=== PATIENT | female | born 1945 | race African-American/Black ===

== ENCOUNTER 2020-10-16 06:28 | Inpatient (IN) | payer OTHER ==
[~2020-10-16] VITALS: Ht 165.1 cm; Wt 67.6 kg
--- NOTE | ~2020-10-16 | EMS ---
[facility] [address] [place] [address] EMS Patient Care Report Name: PALMA SANTAMARIA Room #: REG ANIYAH Dobson#: [id number] Admission: 10/16/20 Attend Phys: Discharge: Date of : 49 Report #: [id number] THIS REPORT FOR: //name// Report Transmitted: 10/16/2020 07:50 EMS Care Summary [place], [place]/[facility] Incident [id number] @ 10/16/2020 05:50 Incident Location [id number] [place] [address] Patient PALMA SANTAMARIA Female, 75 Years 1945 Patient Address [id number] [place] [address] Patient History Asthma,Congestive Heart Failure (CHF),Hypertension (HTN), Patient Allergies Penicillin allergy,Sulfa, Patient Medications Other, Chief Complaint CHEST PAIN WORSE WITH MOVEMENT Disposition Transported No Lights/[place] Dispatch Reason Chest Pain (Non-Traumatic) Transported To [facility] Narrative UPON ARRIVAL PT MEETS US AT DOOR, PT CONSCIOUS ALERT IN WHEELCHAIR. PT C/O LEFT SIDED CHEST PAIN THAT BEGAN LAST NIGHT. PAIN WORSE WITH MOVEMENT. PAIN SIGNIFICICANTLY WORSE WHEN WE HIT BUMPS WHILE DRIVING. PT ALSO STARTED HAVING [facility] [address] [place] [address] EMS Patient Care Report Name: PALMA SANTAMARIA Room #: REG [place]#: [id number] Admission: 10/16/20 Attend Phys: Discharge: Date of : 49 Report #: [id number] SOB LAST NIGHT. PT ALSO HAVING INCREASE IN LEG EDEMA FOR WEEKS. PT STATES THIS ALL HAPPPENS WHEN HER CHF FLAIRS UP. PT REFUSES ANY FURTHER IV ATTEMPTS AFTER MISS. PT REQUESTS TRANSPORT TO [facility] ER AND IS TRANSPORTED TO [facility]. Initial Vitals @06:10P: 80,CO: 2,SpO2: 100,DE Suspected: false @06:19P: 80,R: 20,BP: 170/102,GCS: 15,SpO2: 98,Revised Trauma: 12, @06:02P: 89,R: 20,BP: 189/95,Pain: 8/10,GCS: 15,SpO2: 99,Revised Trauma: 12, Assessments @05:59MENTAL:Person Oriented,Time Oriented,Event Oriented,Place Oriented,SKIN:HEENT:Head/Face: No Abnormalities,Neck/Airway: No Abnormalities,LUNG SOUNDS:General: No Abnormalities,ABDOMEN:General: No Abnormalities,PELVIS//GI:EXTREMITIES:Left Leg: Edema,Right Leg: Edema,Left Arm: No Abnormalities,Right Arm: No Abnormalities,PULSE:Radial: 2+ Normal,NEURO:No Abnormalities, Impression Chest Pain / Discomfort Procedures @05:59ALS AssessmentResponse: UnchangedSucceeded@06:1012-Lead ECGResponse: UnchangedSucceeded@06:083-Lead ECGResponse: UnchangedSucceeded@06:08Saline Lock 0cc (20 ga) Site: Antecubital-LeftResponse: UnchangedFailed Timeline 05:49,Call Received 05:49,Dispatch Notified 05:50,Dispatched 05:53,En Route 05:56,On Scene 05:58,At Patient 05:59,ALS Assessment,Response: UnchangedSucceeded, 06:02,BP: 189/95 M,PULSE: 89,RR: 20 R,SPO2: 99 Ox,ETCO2: ,BG: ,PAIN: 8,GCS: 15, 06:08,Saline Lock 0cc 20 ga Site: Antecubital-Left,Response: UnchangedFailed, 06:08,3-Lead ECG,Response: UnchangedSucceeded, 06:10,12-Lead ECG,Response: UnchangedSucceeded, 06:10,BP: / M,PULSE: 80,RR: R,SPO2: 100 Ox,ETCO2: ,BG: ,PAIN: ,GCS: , 06:12,Depart Scene 06:19,BP: 170/102 M,PULSE: 80,RR: 20 R,SPO2: 98 Ox,ETCO2: ,BG: ,PAIN: ,GCS: 15, 06:23,At Destination 06:47,Call Closed Disclaimer v1.1 Copyright 2020 [employer] This EMS Care Summary contains data elements from the applicable legal record [facility] [address] [place] [address] EMS Patient Care Report Name: PALMA ASNTAMARIA Room #: REG Luis F.#: [id number] Admission: 10/16/20 Attend Phys: Discharge: Date of : 49 Report #: [id number] (which may be displayed differently). It is designed to provide pertinent information for the following purposes: continuity of care, clinical quality, and state data reporting. The complete legal record is available to ED staff and administrators of the receiving hospital in [facility]'s Patient Tracker. All data is provided "as is."
[2020-10-16 06:30] VITALS: BP 179/105
[2020-10-16 07:19] LABS: URINE BILIRUBIN NEGATIVE (Negative); URINE BLOOD NEGATIVE (Negative); URINE CLARITY CLEAR; URINE COLOR YELLOW; URINE GLUCOSE-RANDOM* NEGATIVE (Negative); URINE KETONES NEGATIVE (Negative); URINE LEUKOCYTES-REFLEX TRACE (Negative); URINE NITRITE-REFLEX NEGATIVE (Negative); URINE PROTEIN (DIPSTICK) NEGATIVE (Negative); URINE UROBILINOGEN 0.2 E.U./dl (0.2-1.0)
[2020-10-16 07:23] LABS: ABSOLUTE NEUTROPHILS 1.7 thou/uL (1.4-8.2); BASOPHILS 1.7 % (0.0-2.0); EOSINOPHILS 18.2 % (0.0-3.0); HEMATOCRIT 29.5 % (37.0-47.0); LYMPHOCYTES 30.5 % (24.0-44.0); MCH 36.9 pg (26.0-34.0); MCHC 33.8 g/dL (28.0-37.0); MCV 109.3 fL (80.0-100.0); MONOCYTES 12.3 % (1.0-8.0); PLATELET COUNT 122 thou/uL (150-400); POLYS 37.3 % (36.0-66.0); RDW 14.5 % (10.5-14.5); WBC 4.6 thou/uL (4.0-11.0)
[2020-10-16 07:27] LABS: ANION GAP 11 mmol/L (7-16); BUN 8 mg/dL (7-18); CALCIUM 8.8 mg/dL (8.5-10.1); CHLORIDE 107 mmol/L (98-107); CO2 24 mmol/L (21-32); CREATININE 1.2 mg/dL (0.6-1.0); GLUCOSE 77 mg/dL (74-106); POTASSIUM 3.7 mmol/L (3.5-5.1); SODIUM 142 mmol/L (136-145)
[2020-10-16 07:40] LABS: ALBUMIN 2.8 g/dL (3.4-5.0); SGOT 16 U/L (15-37); SGPT 14 U/L (14-59); TOTAL BILIRUBIN 0.6 mg/dL (0.2-1.0); TOTAL PROTEIN 7.5 g/dL (6.4-8.2); TROPONIN-I <0.06 ng/mL (<0.06)
--- NOTE | 2020-10-16 08:10 | NUR ---
ATTEMPTED TO PHONE [facility] AND AFTER 7 MIN HOLD WILL CALL AGAIN.[phone]
--- NOTE | 2020-10-16 09:36 | NUR ---
PT DID TRANSFER W STAND BY ASSIST ONLY TO SIT IN CHAIR WHILE BED STRIPPED AND PT CHANGED. GAIT STEADY. PT REFUSES TO WALK STATES SHE IS UNABLE.
[2020-10-16] MEDS ORDERED: ZESTRIL40 MG PO (10:01)
[2020-10-16] MEDS ORDERED: LINZESS145 MCG PO (10:02)
[2020-10-16] MEDS ORDERED: PERCOCET 10-321 EAC1 PO (10:02)
[2020-10-16] MEDS ORDERED: PROAIR HFA8.5 GM INH (10:03)
[2020-10-16] MEDS ORDERED: LIPITOR40 MG PO (10:03)
[2020-10-16] MEDS ORDERED: ONDANSETRON HCL4 M2 PO (10:03)
[2020-10-16] MEDS ORDERED: TOVIAZ4 M1 PO (10:04)
[2020-10-16] MEDS ORDERED: MYRBETRIQ25 MG PO (10:04)
[2020-10-16] MEDS ORDERED: TOPROL XL25 MG PO (10:04)
[2020-10-16 10:19] LABS: MACROCYTES 1+; PLATELET ESTIMATE NORMAL
--- NOTE | 2020-10-16 10:32 | NUR ---
CALL TO [facility] [phone] REQUESTING THERAPEUTIC RECREATION LEADER ANNA. SHE CONFIRMS PT WAS INPT OBS ON 09/20/20 FOR CHF AND WAS TO FOLLOW UP W DR GLEASON FOR CARDIAC STRESS TEST 09/22/20. PT HAS HX OF CHF, CVA, HTN, ASTHMA, COPD SHE IS TO SEND RECORDS REFAXED RELEASE OF INFORMATION.
[2020-10-16 11:13] VITALS: BP 127/87
--- NOTE | 2020-10-16 11:37 | NUR ---
FOZIA FERRER TAKING REPORT STATED SHE WOULD CALL BACK IN 10 MIN DUE TO HER BEING IN A PROCEEDURE.
[2020-10-16 12:00] VITALS: BP 171/83
[2020-10-16 13:08] LABS: % SATURATION 85 % (20-39); IRON 175 ug/dL (50-170); TIBC 206 ug/dL (250-450)
[2020-10-16 15:59] VITALS: BP 150/83
--- NOTE | 2020-10-16 16:00 | 2DMMODE ---
[facility] [place] [address] 2 D/M-MODE ECHOCARDIOGRAM Name: PALMA SANTAMARIA Room #: 360-P ADM IN M.R.#: [id number] Admission: 10/16/20 Attend Phys: Esteban Ambrose MD Discharge: Date of : 49 Report #: [id number] THIS REPORT FOR: cc: FAM - Family physician unknown FAM - Family physician unknown Benny Pablo MD [facility] ~ APPROVED REPORT Study performed: 10/16/2020 13:50:11 EXAM: Comprehensive 2D, Doppler, and color-flow Echocardiogram Patient Location: Bedside Room #: 360 Status: routine BSA: 1.75 HR: 84 bpm BP: 171/83 mmHg Rhythm: NSR Other Information Study Quality: Good Indications Diabetes Dyspnea Hypertension/HDD 2D Dimensions RVDd: 34.28 mm IVSd: 8.22 (7-11mm) LVOT Diam: 22.07 (18-24mm) LVDd: 52.13 mm PWd: 7.72 (7-11mm) Ascending Ao: 29.81 (22-36mm) LVDs: 35.43 (25-40mm) Left Atrium: 44.62 (27-40mm) Aortic Root: 30.31 mm IVC: 22.00 mm Volumes Left Atrial Volume (Systole) Single Plane 4CH: 60.59 mL Single Plane 2CH: 71.14 mL LA ESV Index: 42.00 mL/m2 Aortic Valve AoV Peak Aashish.: 1.35 m/s AO Peak Gr.: 7.24 mmHg LVOT Max P.58 mmHg [facility] [address] [address] 2 D/M-MODE ECHOCARDIOGRAM Name: TESS SANTAMARIAYCE Room #: 360-P [facility] IN [facility]#: [id number] Admission: 10/16/20 Attend Phys: Esteban Ambrose MD Discharge: Date of : 49 Report #: [id number] LVOT Max V: 1.07 m/s TONIA Vmax: 3.04 cm2 Mitral Valve E/A Ratio: 0.9 MV Decel. Time: 183.72 ms MV E Max Aashish.: 0.97 m/s MV A Aashish.: 1.07 m/s MV PHT: 53.28 ms IVRT: 147.64 ms Pulmonary Valve PV Peak Aashish.: 0.99 m/s PV Peak Gr.: 3.89 mmHg Pulmonary Vein P Vein S: 0.47 m/s P Vein A: 0.43 m/s P Vein D: 0.36 m/s P Vein A Dur.: 143.0 msec P Vein S/D Ratio: 1.31 Tricuspid Valve TR Peak Aashish.: 3.92 m/s TR Peak Gr.: 61.38 mmHg PA Pressure: 76.00 mmHg Left Ventricle The left ventricle is normal size. There is normal LV segmental wall motion. There is normal left ventricular wall thickness. The left ventricular systolic function is normal. The left ventricular ejection fraction is within the normal range. LVEF 55%. Mild diastolic dysfunction Right Ventricle The right ventricle is normal size. The right ventricular systolic function is normal. Atria Left atrium is dilated. Right atrium is at the upper limits of normal. Aortic Valve The aortic valve is normal in structure. No aortic regurgitation is present. There is no aortic valvular stenosis. Mitral Valve The mitral valve is normal in structure. Mild mitral regurgitation. No evidence of mitral valve stenosis. [facility] [address] [place] [address] 2 D/M-MODE ECHOCARDIOGRAM Name: PALMA SANTAMARIA Room #: 360-P [facility] IN ..#: [id number] Admission: 10/16/20 Attend Phys: Esteban Ambrose MD Discharge: Date of : 49 Report #: [id number] Tricuspid Valve The tricuspid valve is normal in structure. There is mild tricuspid regurgitation. Estimated PAP 75 mmHg. There is severe pulmonary hypertension. Pulmonic Valve The pulmonary valve is normal in structure. There is no pulmonic valvular regurgitation. Great Vessels The aortic root is normal in size. IVC is normal in size and collapses >50% with inspiration. IVC is normal in size and collapses >50% with inspiration. Pericardium Anterior clear space, likely epicardial fat. <Conclusion> The left ventricular systolic function is normal. There is normal LV segmental wall motion. LVEF 55%. Mild diastolic dysfunction Left atrium is dilated. The aortic valve is normal in structure. No aortic regurgitation or stenosis The mitral valve is normal in structure. Mild mitral regurgitation. There is mild tricuspid regurgitation. Estimated pulmonary artery of 75 mmHg. Anterior clear space, likely epicardial fat. <ELECTRONICALLY SIGNED> By: Benny Pablo MD, FACC 10/16/201599 99 99 Benny Pablo MD, FACC /INF
[2020-10-16 19:54] VITALS: BP 124/69
[2020-10-17 03:04] VITALS: BP 142/82
[2020-10-17 04:40] LABS: HEMATOCRIT 29.6 % (37.0-47.0); MCH 37.2 pg (26.0-34.0); MCHC 33.8 g/dL (28.0-37.0); MCV 110.2 fL (80.0-100.0); RBC 2.69 mil/uL (4.20-5.00); RDW 14.3 % (10.5-14.5); WBC 3.8 thou/uL (4.0-11.0)
[2020-10-17 04:46] LABS: CALCIUM 8.5 mg/dL (8.5-10.1); CREATININE 1.3 mg/dL (0.6-1.0); MAGNESIUM 1.1 mg/dL (1.8-2.4); POTASSIUM 3.7 mmol/L (3.5-5.1)
[2020-10-17 07:37] VITALS: BP 148/92
--- NOTE | 2020-10-17 08:00 | NUR ---
Received pt. on 1 L/NC with O2 sat of 100%. RT titrated to RA and did nocturnal desat study last night. Pt. stated she slept fair during the night. Requested med for pain , tylenol given with no relief. Hydrocodone given with better outcome. Up with SBA to commode. Bed alarm on for safety. Denies chest pain though she verbalized being short of breath with exertion.
[2020-10-17 11:13] VITALS: BP 122/74
[2020-10-17 11:35] VITALS: BP 122/74
--- NOTE | 2020-10-17 14:39 | EKG ---
[address] [place] [address] ELECTROCARDIOGRAM REPORT Name: PALMA SANTAMARIA Room #: 360- ADM IN M.R.#: [id number] Admission: 10/16/20 Attend Phys: Esteban Ambrose MD Discharge: Date of : 49 Report #: [id number] [facility] ED Test Date: 2020-10-16 Test Time: 06:34:53 Pat Name: PALMA SANTAMARIA Department: Room: 360 Gender: F It Architecture Analyst: unknown : 1945 Requested By: Carmen Cheung Order Number: [id number] MD: Jaime Myers Measurements Intervals [place] Rate: 87 P: 22 CT: 132 QRS: 39 QRSD: 100 T: 110 QT: 352 QTc: 424 Interpretive Statements Sinus rhythm Ventricular premature complex Abnrm T, consider ischemia, anterolateral lds No previous ECG available for comparison Electronically Signed On 10-17-2020 14:39:35 CDT by Jaime Myers [email or web address] <ELECTRONICALLY SIGNED> By: Jaime Myers MD, [facility] 10/17/20 1439 0634 3 Jaime Myers MD, FACC /EPI
--- NOTE | 2020-10-17 14:53 | NUR ---
INITIAL ASSESSMENT: Received consult. AVE reviewed chart and spoke with nursing and attending physician. Pt was admitted due to chest pain/dyspnea. Pt is currently on 3L of O2. PT/OT ordered to evaluate pt for discharge needs. AVE met with pt at bedside. Introduced role of AVE. Pt is alert/orientated x 4 and reports she has been staying at an Extended Stay motel. Pt states she was recently hospitalized at [facility]. Pt was on service with [facility] . Discussed case with liaison, who states they are unable to accept pt back on service. Pt reports she has a w/c and has home O2 in place through [facility]. Pt's PCP is at [facility]. Pt states her provider is going to be graduating soon and unsure who her next PCP will be. SW discussed SNF placement upon discharge. Pt is agreeable. SW provided list of in-network facilities for pt to review. Pt reports that she is unsure of her jail plans at this time. Pt does not know if she will have the financial means to pay for additional time at an Extended Stay motel. AVE asked about family/social support. Pt has a sister, who she is in contact with. SW offered to contact pt's sister to provide update. Pt declines offer and states she will be the only one to contact her sister. AVE is following to assist as needed with discharge planning.
[2020-10-17 15:41] VITALS: BP 120/74
[2020-10-17 19:58] VITALS: BP 120/65
--- NOTE | 2020-10-17 20:04 | NUR ---
RN ASSUMED PT, FATEMEHE AT 0700AM, PT IS A&OX3, PT IS ON O2 2-3L/MIN/NC, PT'S VS AND O2SAT ARE STABLE, PT HAS LOW MAG REPLACEMENT , PT 'S PAIN CAN CONTROL , PT DENIES SOB AND N/V AT DAY SHIFT.
[2020-10-18 04:47] VITALS: BP 159/81
[2020-10-18 04:48] LABS: HEMATOCRIT 30.6 % (37.0-47.0); HEMOGLOBIN 10.2 gm/dL (12.0-15.0); MCH 37.1 pg (26.0-34.0); MCHC 33.4 g/dL (28.0-37.0); PLATELET COUNT 125 thou/uL (150-400); RBC 2.76 mil/uL (4.20-5.00); RDW 14.3 % (10.5-14.5); WBC 3.3 thou/uL (4.0-11.0)
[2020-10-18 04:49] VITALS: BP 159/81
[2020-10-18 05:24] LABS: CALCIUM 8.8 mg/dL (8.5-10.1); CREATININE 1.5 mg/dL (0.6-1.0); MAGNESIUM 2.1 mg/dL (1.8-2.4); POTASSIUM 4.2 mmol/L (3.5-5.1)
[2020-10-18 07:57] VITALS: BP 156/82
--- NOTE | 2020-10-18 07:59 | NUR ---
PROGRESS PT A/O X4 UP AD HARJIT REPORTING PAIN TO HEAD AND LEFT SIDE OF BODY TAKING HYDROCODONE WITH SOME EFFECT PT RESTED AFTER. DENIES CHEST PAIN BUT IS C/O PAIN IN LEFT LEG NEAR IP AND DOWN LEG AND THEN PAIN TO RIGHT ANKLE. PT VERY CONCERNED ABOUT VT'S BUT DISCUSSED ELIQUIS MEDICATION THAT WOULD DISSOLVE THEM SHE R/V UNDERSTANDING. CONTINUE POC.
[2020-10-18 11:31] VITALS: BP 138/71
[2020-10-18 12:31] LABS: ANISOCYTOSIS SLIGHT; LARGE PLATELETS OCCASIONAL; MACROCYTES 2+
[2020-10-18 15:56] VITALS: BP 140/66
--- NOTE | 2020-10-18 17:02 | NUR ---
PATIENT HAS DECLINED MULTIPLE TREATMENTS THIS SHIFT SUCH : PT, OT, AND BATHING. PATIENT WILL OFTEN PUT A BLANKET OVER HER HEAD AND NOT ANSWER STAFF. EDUCATION PROVIDED ABOUT TREATMENTS BUT PATIENT CONTINUES TO DECLINE.
--- NOTE | 2020-10-18 17:13 | NUR ---
cm faxed referrals to [facility] op [phone], [facility] [phone] and [facility]. [phone].
[2020-10-18 19:50] VITALS: BP 149/85
[2020-10-19 04:05] VITALS: BP 158/92
--- NOTE | 2020-10-19 04:58 | NUR ---
Patient has progressed towards outcome goals. Vital signs and rhythm stable. High fall risks, fall precautions in place. Uses call light appropriately for needs. Slept after Hydrocodone.
[2020-10-19 07:43] VITALS: BP 159/82
[2020-10-19 08:07] LABS: ANA INTERPRETATION Negative (Negative)
[2020-10-19 11:30] VITALS: BP 155/91
--- NOTE | 2020-10-19 13:48 | NUR ---
PATIENT ALERT/ORIENTED. VOICES PAIN TO ANKLE AND HEAD. PRN MEDICATIONS GIVEN PER EMAR. WORKING WITH PT/OT. UP WITH MINIMAL ASSIST. MEDICALLY READY FOR DISCHARGE PER DR. PERLA. AWAITING FACILITY PLACEMENT FROM CASE MANAGEMENT. PATIENT VERABLIZES NEEDS. ALL FALL PRECAUTIONS IN PLACE.
--- NOTE | 2020-10-19 14:54 | NUR ---
SW reviewed chart and spoke with nursing and attending physician. Pt is progressing towards goals for discharge to SNF. AVE received call from Manasa at [facility], stating that pt will have a copay on day 21 of skilled services due to having [place]icaid as secondary insurance. [facility] liaison states they are unable to accept pt due to having [facility] Dual Complete/[place] Medicaid. AVE met with pt at bedside to provide update and discuss alternate SNF options. Reviewed list of in-network [place] SNFs with pt. Pt requests referrals to be sent to [facility]. SW faxed referrals and notified liaisons of new referral. Will need insurance auth once pt has chosen a facility. AVE is following to assist as needed with discharge planning.
[2020-10-19 16:38] VITALS: BP 161/98
[2020-10-19 21:00] VITALS: BP 174/92
--- NOTE | 2020-10-20 03:57 | NUR ---
Patient is progressing towards outcome goals. Oxygenation optimal on room air but she wants nasal cannula on. Nocturnal desat study in progress. Complained of urinary urgency. Orders received for UA, collected and sent. Results pending. High fall risks, fall precautions in place. Calls out approipriately for needs, gait steady, standby assist.
[2020-10-20 04:40] VITALS: BP 171/92
[2020-10-20 04:55] LABS: URINE BILIRUBIN NEGATIVE (Negative); URINE BLOOD NEGATIVE (Negative); URINE CLARITY CLEAR; URINE COLOR YELLOW; URINE GLUCOSE-RANDOM* NEGATIVE (Negative); URINE KETONES NEGATIVE (Negative); URINE LEUKOCYTES NEGATIVE (Negative); URINE NITRITE NEGATIVE (Negative); URINE PROTEIN (DIPSTICK) NEGATIVE (Negative); URINE SPECIFIC GRAVITY 1.015 (1.005-1.035)
[2020-10-20 07:29] VITALS: BP 181/96
--- NOTE | 2020-10-20 11:06 | NUR ---
SW reviewed chart and spoke with nursing and attending physician. Pt is medically stable for discharge to post-acute care. Pt has been accepted by [facility]. SW met with pt at bedside to provide update and notify of acceptance. Pt states that she would like to interview both facilities to determine which one she prefers. SW explained process for obtaining insurance authorization. Pt verbalized understanding. Daniel from [facility] will do onsite visit. Candida from [facility] will speak with pt via phone. Awaiting preference from pt at this time. SW is following to assist as needed with discharge planning.
[2020-10-20 15:23] VITALS: BP 157/83
[2020-10-20 20:53] VITALS: BP 182/100
[2020-10-20 23:59] VITALS: BP 188/106
[2020-10-21] VITALS: BP 169/84
--- NOTE | 2020-10-21 05:33 | NUR ---
PROGRESS PT A/O X4. REPORTS HEADACHE ON LEFT SIDE OF HEAD AND PAIN IN BOTH LEGS RATING AN 8 OUT OF 0/10 SCALE HYDROCODONE GIVEN WITH SOME EFFECT PT DID SLEEP AFTER FOR AWHILE. BP ELEVATED 182/100 AT START OF SHIFT THEN 169/73 ON RECHECK. NOCTURNAL OXIMETRY STUDY IN PROGRESS SATS REMAINING IN HIGH 90'S ON ROOM AIR, PT DENIES SOB. UP AD HARJIT TO BSC, AND SBA WITH ANY DISTANCE ACTIVITY. GAIT STEADY. LUNGS CLEAR PT HAS SOME TRACHEAL CONGESTION SHE IS HAVING TROUBLE CLEARING MUCINEX ORDER OBTAINED AND GIVEN PT STATES STILL UNABLE TO CLEAR THROAT. ADVISED TO PUSH FLUIDS AND TRY TO LOOSEN MUCUS. PT AWAITING TRANSFER TO [facility]ISTED LIVING.
[2020-10-21 05:40] VITALS: BP 155/87
[2020-10-21 07:19] VITALS: BP 170/98
[2020-10-21 15:32] VITALS: BP 149/87
[2020-10-21 20:00] VITALS: BP 167/90
[2020-10-22 05:04] VITALS: BP 176/99
--- NOTE | 2020-10-22 07:20 | NUR ---
PROGRESS PT A/O X4 LUNGS CLEAR BUT DIMINISHED, TRACHEAL CONGESTION NOTED PT FEELS LIKE SHE IS UNABLE TO CLEAR, MUCINEX GIVEN AND ENCOURAGED PT TO DRINK FLUIDS TO THIN SECRETIONS. VSS VOIDING QS. TAKING HYDROCODONE WITH EFFECT FOR HEADACHE AND BILATERAL LEG PAIN. RIGHT LEG WRAPPED WITH WARM BLANKET WITH GOOD EFFECT PT STATED IT HELPED A LOT. CONTINUE POC.
[2020-10-22 15:34] VITALS: BP 111/64
[2020-10-22 15:37] VITALS: BP 152/80
[2020-10-22 19:09] VITALS: BP 172/87
[2020-10-22 21:52] VITALS: BP 137/82
[2020-10-23 04:20] VITALS: BP 169/75
--- NOTE | 2020-10-23 05:20 | NUR ---
PT MAKING PROGRESS TOWARDS GOALS. NO REPORTS OF CHEST PAIN. PAIN COMPLAINTS ARE HEADACHE AND GENERALIZED BODY PAIN. TREATED WITH LORTABL PER ORDERS AND PTS REPORTED PAIN LEVEL. SEE CHARTING.
[2020-10-23 07:15] VITALS: BP 169/83
--- NOTE | 2020-10-23 07:19 | NUR ---
REPORT GIVEN TO CARISSA MARCELO. PT MAKING POOR PROGRESS TOWARDS GOALS. LUNGS COARSE THROUGHOUT. HAS WET BUT NONPRODUCTIVE COUGH. CONGESTION CAN BE HEARD W/O STETHOSCOPE. PT COUGH ALSO WEAK. SLIGHTLY STRONGER WITH DEEP BREATH PRIOR TO FORCING COUGH. ASKED DAY RT TO PROVIDE FLUTTER VALVE. ENCOURAGED DEEP BREATH/COUGH EVERY HOUR. WOB EASILY ELEVATED WITH MOVEMENT.
[2020-10-23 15:17] VITALS: BP 176/102
[2020-10-23 16:33] VITALS: BP 147/69
[2020-10-23 20:36] VITALS: BP 136/72
[2020-10-24 03:23] VITALS: BP 146/63
--- NOTE | 2020-10-24 03:57 | NUR ---
PT MAKING PROGRESS TOWARDS GOALS. X1 DOSE OF LORTAB GIVEN FOR GENERALIZED BODY PAIN AND HEADACHE OVERNIGHT. RATING PAIN 8/10 WITH A DECREASE TO 5/10 AFTER PAIN MEDICATION. CONTINUE TO MONITOR.
[2020-10-24 07:33] VITALS: BP 146/80
[2020-10-24] MEDS ORDERED: HYDROCODON-ACE1 EAC7 PO (11:02)
[2020-10-24] MEDS ORDERED: HYDRALAZINE 10M10 MG PO (11:02)
[2020-10-24] MEDS ORDERED: ELIQUIS5 MG PO (11:02)
[2020-10-24] MEDS ORDERED: TORSEMIDE10 MG PO (11:03)
[2020-10-24] MEDS ORDERED: BENZONATATE100 MG PO (11:03)
[2020-10-24] MEDS ORDERED: PREDNISONE 10 M10 M1 PO (11:07)
--- NOTE | 2020-10-24 11:22 | NUR ---
DISCHARGE NOTE: AVE reviewed chart and spoke with nursing and attending physician. Pt is medically stable for discharge to [facility] today pending insurance authorization. AVE contacted Daniel at [facility] who states they obtained auth and can accept pt today. Wheelchair van transportation to be arranged for [phone] per facility's arrangements. AVE updated pt's physician and nurse. AVE faxed finalized discharge ppwk to [facility]. Confirmed info was received. AVE met with pt at bedside to provide update and discuss discharge plan. Pt is aware and in agreement with discharge plan. Per chart, pt stated to psych that she has a lab rep through [facility]. AVE placed call to [facility] and spoke with Keke. Pt does not currently have an open case. AVE updated [facility] post-acute liaison. Chart copy requested. Nursing provided with number to call report. No additional SW needs identified at this time, but is available to assist should needs arise.
[2020-10-24 13:09] VITALS: BP 158/86
== END 2020-10-24 15:05 | DRG 205 ==
LOC: ER 06:28 → EROBS 11:52 → 3W 11:52
PROVIDERS: Emergency Medicine; Internal Medicine; Internal Medicine Pulmonary Disease; Nurse Practitioner Family; ADMIT Hospitalist; ATTEND Hospitalist
DX: M94.0 Chondrocostal junction syndrome [Tietze] (principal); J96.20 Acute and chronic respiratory failure, unspecified whether with hypoxia or hypercapnia; I50.31 Acute diastolic (congestive) heart failure; I82.412 Acute embolism and thrombosis of left femoral vein; I50.22 Chronic systolic (congestive) heart failure; I11.0 Hypertensive heart disease with heart failure; Z20.822 Contact with and (suspected) exposure to COVID-19; E11.9 Type 2 diabetes mellitus without complications; J45.909 Unspecified asthma, uncomplicated; Z60.2 Problems related to living alone; I27.20 Pulmonary hypertension, unspecified; E78.5 Hyperlipidemia, unspecified; D72.19 Other eosinophilia; F17.210 Nicotine dependence, cigarettes, uncomplicated; R53.81 Other malaise; D53.9 Nutritional anemia, unspecified; N32.81 Overactive bladder; F41.1 Generalized anxiety disorder; K59.00 Constipation, unspecified; Z74.1 Need for assistance with personal care; J44.9 Chronic obstructive pulmonary disease, unspecified; Z86.73 Personal history of transient ischemic attack (TIA), and cerebral infarction without residual deficits; Z88.2 Allergy status to sulfonamides; Z88.0 Allergy status to penicillin
CPT/HCPCS: 10879